=== PATIENT | female | born 1995 | race African-American/Black ===

== ENCOUNTER 2018-05-09 18:23 | Observation (INO) | payer MEDICAID, OTHER ==
[~2018-05-09] VITALS: Ht 154.9 cm; Wt 72.6 kg
[~2018-05-09 18:23] MED LIST: ALB5IS
[2018-05-09 19:10] LABS: Urine Amorphous Crystal FEW /hpf (None Seen); Urine Bacteria FEW /hpf (None Seen); Urine Blood Negative /uL (Negative); Urine Mucus FEW (None Seen); Urine Specific Gravity 1.017 (1.001-1.035); Urine WBC 4 /hpf (0 - 5)
== END 2018-05-09 19:20 | disposition home or self-care (01) | DRG 566 ==
LOC: LDRP 18:23
PROVIDERS: ADMIT Obstetrics & Gynecology; ATTEND Obstetrics & Gynecology
DX: O26.892 Other specified pregnancy related conditions, second trimester (principal); K59.00 Constipation, unspecified; N89.8 Other specified noninflammatory disorders of vagina; Z3A.26 26 weeks gestation of pregnancy
CPT/HCPCS: 59025; 81001; 81002; G0378